=== PATIENT | male | born 1990 | race Two or more races ===

== ENCOUNTER 2017-03-11 22:33 | Emergency (ER) | payer OTHER ==
[2017-03-11 23:40] LABS: BASOPHIL % 0.3 % (0-2); PLATELET COUNT 339 x10^3mcL (130-400); RED CELL DISTRIBUTION WIDTH 14.3 % (11.5-14.5)
[2017-03-11 23:54] LABS: CALCIUM 8.6 mg/dL (8.5-10.1); CARBON DIOXIDE 26.9 mmol/L (21-32); CHLORIDE SERUM 105 mmol/L (98-107); GFR1 > 60 mL/min; GLUCOSE SERUM 94 mg/dL (74-106); POTASSIUM SERUM 3.8 mmol/L (3.5-5.1); SODIUM SERUM 142 mmol/L (136-145)
[2017-03-12 00:08] LABS: ALBUMIN 3.8 g/dL (3.4-5.0); ALKALINE PHOSPHATASE 108 U/L (46-116); ALT/SGPT 39 U/L (16-63); AMYLASE 41 U/L (25-115); AST/SGOT 29 U/L (15-37); BILIRUBIN TOTAL 0.2 mg/dL (0.20-1.00); LIPASE 143 IU/L (73-393); TOTAL PROTEIN, SERUM 7.3 g/dL (6.4-8.2)
[2017-03-12 03:05] LABS: microscopic required? NO
[2017-03-12 03:14] LABS: UA SPECIFIC GRAVITY 1.025 (1.005-1.035); urine erythrocyte NEGATIVE (NEGATIVE)
[2017-03-12 04:17] VITALS: BP 144/97
[2017-03-12] MEDS ORDERED: FLAGYL500 MG PO (20:15)
[2017-03-12] MEDS ORDERED: EPZICOM1 TAB (20:15)
[2017-03-12] MEDS ORDERED: ZOF4 PO (20:15)
[2017-03-12] MEDS ORDERED: IBUPROFEN400 MG PO (20:15)
== END 2017-03-12 04:17 | disposition home or self-care (01) ==
LOC: ED 22:33
PROVIDERS: Emergency Medicine
DX: K52.9 Noninfective gastroenteritis and colitis, unspecified (principal); Z79.2 Long term (current) use of antibiotics
CPT/HCPCS: 83880; C9113; J1885; J2270; J2405; J2765; J3490; J7030

== ENCOUNTER 2017-03-12 18:24 | Inpatient (IN) | payer OTHER ==
[~2017-03-12] VITALS: Ht 180.3 cm; Wt 98.2 kg
[2017-03-12 19:30] LABS: BASOPHIL % 0.3 % (0-2); PLATELET COUNT 334 x10^3mcL (130-400); RED CELL DISTRIBUTION WIDTH 14.4 % (11.5-14.5)
[2017-03-12] MEDS ORDERED: EPZICOM1 TAB (20:15)
[2017-03-12] MEDS ORDERED: IBUPROFEN400 MG PO (20:15)
[2017-03-12] MEDS ORDERED: FLAGYL500 MG PO (20:15)
[2017-03-12] MEDS ORDERED: ZOF4 PO (20:15)
[2017-03-12 21:24] VITALS: BP 135/85
[2017-03-12 21:37] LABS: T3 TOTAL 1.13 ng/mL
[2017-03-12 21:40] LABS: FREE T4 1.12 ng/dL (0.76-1.46); FREE THYROXINE INDEX 2.9 ug/dL (1.4-4.5); T4(THYROXINE) 8.2 ug/dL (4.7-13.3)
[2017-03-12 21:47] LABS: PHOSPHOROUS 2.9 mg/dL (2.5-4.9)
[2017-03-13 01:49] LABS: CALCIUM 8.4 mg/dL (8.5-10.1); CARBON DIOXIDE 21.7 mmol/L (21-32); CHLORIDE SERUM 106 mmol/L (98-107); GFR1 > 60 mL/min; GLUCOSE SERUM 124 mg/dL (74-106); POTASSIUM SERUM 3.5 mmol/L (3.5-5.1); SODIUM SERUM 141 mmol/L (136-145)
[2017-03-13 05:53] VITALS: BP 110/74
[2017-03-13 10:10] VITALS: BP 98/56
[2017-03-13 16:48] VITALS: BP 112/56
[2017-03-13 22:27] VITALS: BP 114/57
[2017-03-14 06:22] VITALS: BP 124/60
[2017-03-14 06:25] LABS: CALCIUM 8.4 mg/dL (8.5-10.1); CARBON DIOXIDE 26.9 mmol/L (21-32); CHLORIDE SERUM 107 mmol/L (98-107); CREATININE SERUM 0.9 mg/dL (0.7-1.3); GFR1 > 60 mL/min; GLUCOSE SERUM 97 mg/dL (74-106); POTASSIUM SERUM 3.6 mmol/L (3.5-5.1); SODIUM SERUM 141 mmol/L (136-145)
[2017-03-14 06:34] LABS: BASOPHIL % 0.4 % (0-2); PLATELET COUNT 302 x10^3mcL (130-400)
[2017-03-14 06:39] LABS: RED CELL DISTRIBUTION WIDTH 14.6 % (11.5-14.5)
[2017-03-14 09:52] VITALS: BP 106/45
[2017-03-14 10:51] VITALS: BP 106/46
[2017-03-14] MEDS ORDERED: BD LACTINEX1.4 MG PO (14:58)
[2017-03-14 15:19] VITALS: BP 106/46
== END 2017-03-14 15:43 | disposition home or self-care (01) | DRG 392 ==
LOC: ED 18:24 → MU 19:56 → DU 19:56 → MU 03-13 07:54
PROVIDERS: Emergency Medicine Emergency Medical Services; Family Medicine; Internal Medicine Gastroenterology; ADMIT Family Medicine
PROC: 0DBL8ZX Excision of Transverse Colon, Via Natural or Artificial Opening Endoscopic, Diagnostic (ICD-10-PCS; 2017-03-14)
PROC: 0DBN8ZX Excision of Sigmoid Colon, Via Natural or Artificial Opening Endoscopic, Diagnostic (ICD-10-PCS; 2017-03-14)
PROC: 0DBP8ZX Excision of Rectum, Via Natural or Artificial Opening Endoscopic, Diagnostic (ICD-10-PCS; principal; 2017-03-14 08:00)
DX: K52.9 Noninfective gastroenteritis and colitis, unspecified (principal); E66.9 Obesity, unspecified; Z68.30 Body mass index [BMI] 30.0-30.9, adult; Z71.3 Dietary counseling and surveillance
CPT/HCPCS: 45378; 83880; 84439; 87046; 87046-59; J0295; J1200; J1610; J1956; J2250; J2270; J2310; J3010; J3490; J7030; Q0092

== ENCOUNTER → 2018-05-02 | Outpatient (CLI) | payer OTHER ==
[~2018-05-02] MED LIST: BD LACTINEX1.4 MG PO; EPZICOM1 TAB; FLAGYL500 MG PO; IBUPROFEN400 MG PO; ZOF4 PO
== END | disposition home or self-care (01) ==
LOC: CT 04-30 09:00
PROC: BW211ZZ Computerized Tomography (CT Scan) of Abdomen and Pelvis using Low Osmolar Contrast (ICD-10-PCS; principal; 2018-05-02)
DX: K62.5 Hemorrhage of anus and rectum (principal)
CPT/HCPCS: Q9967